=== PATIENT | female | born 1975 | race Caucasian/White ===

== ENCOUNTER → 2016-09-29 | Outpatient (CLI) | payer BC | LOC: M SMT 10:06 | PROVIDERS: ATTEND Advanced Practice Midwife | DX: A60.04 Herpesviral vulvovaginitis (principal) ==

== ENCOUNTER → 2017-05-25 | Outpatient (REF) | payer BC | LOC: M LAB REF 13:32 | PROVIDERS: ATTEND Advanced Practice Midwife | DX: Z11.3 Encounter for screening for infections with a predominantly sexual mode of transmission (principal) ==

== ENCOUNTER → 2019-09-30 | Outpatient (CLI) | payer BC ==
--- NOTE | 2019-09-30 15:36 | REP ---
Clinical: Abnormal menstrual cycles. Technique: Transabdominal pelvic ultrasound followed by transvaginal examination for better evaluation of the endometrium and adnexa with color Doppler evaluation of the ovaries. Findings: Bladder is collapsed. Heterogeneous retroverted uterus measures 11.2 x 5.8 x 7.5 cm. Endometrial complex measures 10.0 mm thickness. No discrete uterine or endometrial abnormality noted. The bilateral ovaries are normal in appearance and vascularity without torsion. Right ovary measures 4.0 x 1.7 x 2.6 cm (RI 0.54) and includes 2.1 cm simple cyst. Left ovary measures 3.6 x 1.6 x 2.7 cm (RI 0.58). No pelvic fluid or adnexal mass lesion. Impression: 1. Relatively normal retroverted uterus. 2. 2.1 cm right ovarian cyst likely physiologic.
== END ==
LOC: M WHC 13:24
PROVIDERS: ATTEND Advanced Practice Midwife
DX: N83.201 Unspecified ovarian cyst, right side (principal); N85.5 Inversion of uterus; N92.0 Excessive and frequent menstruation with regular cycle

== ENCOUNTER → 2019-10-15 | Outpatient (REF) | payer BC | LOC: M SFHCWAGY 17:13 | PROVIDERS: ATTEND Advanced Practice Midwife | DX: N93.9 Abnormal uterine and vaginal bleeding, unspecified (principal) ==

== ENCOUNTER → 2020-01-21 | Outpatient (REF) | payer BC ==
[2020-01-21 21:35] LABS: CHLAMYDIA DNA AMPLIFICATION NEGATIVE (NEGATIVE); GC DNA AMPLIFICATION NEGATIVE (NEGATIVE)
== END ==
LOC: M SFHCWAGY 17:59
PROVIDERS: ATTEND Advanced Practice Midwife
DX: Z97.5 Presence of (intrauterine) contraceptive device (principal)

== ENCOUNTER → 2020-11-03 | Outpatient (REF) | payer BC | LOC: M PLALAB 10:00 | PROVIDERS: ATTEND Advanced Practice Midwife | DX: E04.9 Nontoxic goiter, unspecified (principal) ==

== ENCOUNTER → 2021-06-13 | Outpatient (REF) | payer BC | LOC: M LAB REF 15:26 | PROVIDERS: ATTEND Family Medicine | DX: R19.4 Change in bowel habit (principal) ==

== ENCOUNTER → 2021-11-09 | Outpatient (REF) | payer BC | LOC: M PLALAB 08:30 | PROVIDERS: ATTEND Advanced Practice Midwife | DX: R87.610 Atypical squamous cells of undetermined significance on cytologic smear of cervix (ASC-US) (principal); Z12.4 Encounter for screening for malignant neoplasm of cervix | CPT/HCPCS: 87624; G0123 ==

== ENCOUNTER → 2021-11-09 | Outpatient (CLI) | payer BC | LOC: M PLALAB 10:16 | PROVIDERS: ATTEND Advanced Practice Midwife | DX: R63.5 Abnormal weight gain (principal) ==

== ENCOUNTER → 2021-12-13 | Outpatient (CLI) | payer BC ==
[~2021-12-13] MED LIST: EMGA120I SC; METF750T36 PO; MULT-40 PO; NORE1TAB7 PO; ONDA4TAB6 PO; PEPC1TAB5 PO; QC F0.52 PO; SPIR50TA4 PO; SUMA50TA2 PO
== END ==
LOC: M LABSMTC 10:37
PROVIDERS: ATTEND Anesthesiology
DX: Z01.818 Encounter for other preprocedural examination (principal); Z11.52 Encounter for screening for COVID-19

== ENCOUNTER 2021-12-17 08:43 | Day surgery (SDC) | payer BC ==
[~2021-12-17] VITALS: Ht 167.6 cm; Wt 73.0 kg
[~2021-12-17 08:43] MED LIST changes: +NS 1,000 ML IV ONE
[2021-12-17] MEDS ORDERED: propofoL 200 MG/20 ML VIAL As Ordered ONE (10:07)
[2021-12-17] MEDS ORDERED: LIDOCAINE 2% 100MG/5ML SDV (FOR ANES.) As Ordered ONE (10:07)
[2021-12-17 10:35] VITALS: BP 99/58
== END 2021-12-17 10:49 | disposition home or self-care (01) ==
LOC: M OPP 08:43
PROVIDERS: ATTEND Internal Medicine Gastroenterology
DX: Z12.11 Encounter for screening for malignant neoplasm of colon (principal); Z80.0 Family history of malignant neoplasm of digestive organs; K64.0 First degree hemorrhoids; Z79.3 Long term (current) use of hormonal contraceptives; Z79.84 Long term (current) use of oral hypoglycemic drugs; Z79.899 Other long term (current) drug therapy

== ENCOUNTER → 2022-03-08 | Outpatient (REF) | payer BC ==
[~2022-03-08] MED LIST changes: -NS 1,000 ML IV ONE
[2022-03-09 12:52] LABS: BACTERIA, URINE AUTO 1+ (NEGATIVE); RBC, URINE AUTO 0 /HPF (0-3); SQUAMOUS EPITHELIAL CELL UR AU 1 /HPF (0-6); WBC, URINE AUTO 1 /HPF (0-3)
== END ==
LOC: M LAB REF 12:28
PROVIDERS: ATTEND Registered Nurse
DX: R31.9 Hematuria, unspecified (principal)

== ENCOUNTER → 2023-01-31 | Outpatient (REF) | payer BC | LOC: M SFHCWAGY 08:23 | PROVIDERS: ATTEND Advanced Practice Midwife | DX: Z12.4 Encounter for screening for malignant neoplasm of cervix (principal) | CPT/HCPCS: 87624; G0123 ==

== ENCOUNTER → 2023-02-03 | Outpatient (CLI) | payer BC ==
[2023-02-03 10:02] LABS: BASO % 0.7 % (0.0-1.0); EOS # 0.3 10^3/uL (0.0-0.5); HEMATOCRIT 37.7 % (36.0-47.0); HEMOGLOBIN 12.9 g/dl (12.0-15.5); LYMPH # 1.6 10^3/uL (1.5-5.0); LYMPH % 30.1 % (24.0-44.0); MEAN CORPUSCULAR HEMOGLOBIN 32.1 pg (27.0-33.0); MEAN CORPUSCULAR HGB CONC 34.2 g/dl (32.0-36.5); MEAN CORPUSCULAR VOLUME 93.8 fl (80.0-96.0); MONO # 0.5 10^3/uL (0.0-0.8); MONO % 9.9 % (2.0-8.0); NEUTROPHILS # 2.8 10^3/uL (1.5-8.5); NEUTROPHILS % 53.1 % (36.0-66.0); PLATELET COUNT, AUTOMATED 335 10^3/uL (150-450); RED BLOOD COUNT 4.02 10^6/uL (4.00-5.40); WHITE BLOOD COUNT 5.4 10^3/uL (4.0-10.0)
[2023-02-03 10:25] LABS: ALKALINE PHOSPHATASE 50 U/L (46-116); ALT/SGPT 14 U/L (7.0-40); AST/SGOT 13 U/L (<34); BILIRUBIN,TOTAL 0.3 MG/DL (0.3-1.2); BLOOD UREA NITROGEN < 5 MG/DL (9-23); CALCIUM LEVEL 8.9 MG/DL (8.5-10.1); CARBON DIOXIDE LEVEL 27 MMOL/L (20-31); CHLORIDE LEVEL 106 MMOL/L (98-107); CHOLESTEROL LEVEL 150 MG/DL (<200); CREATININE FOR GFR 0.75 MG/DL (0.55-1.30); GLOMERULAR FILTRATION RATE > 60.0 (>58); GLUCOSE, FASTING 77 MG/DL (60-100); HDL CHOLESTEROL 39.4 MG/DL (>40); LDL CHOLESTEROL 92.8 MG/DL (<100); NON-HDL-C 110.6 MG/DL; POTASSIUM SERUM 3.7 MMOL/L (3.5-5.1); SODIUM LEVEL 136 MMOL/L (136-145); TOTAL PROTEIN 6.3 G/DL (5.7-8.2); TRIGLYCERIDES LEVEL 89 MG/DL (<150)
== END ==
LOC: M WUC 08:06
PROVIDERS: ATTEND Registered Nurse
DX: Z00.00 Encounter for general adult medical examination without abnormal findings (principal); Z13.220 Encounter for screening for lipoid disorders

== ENCOUNTER → 2023-09-14 | Outpatient (REF) | payer BC | LOC: M LAB REF 09:55 | PROVIDERS: ATTEND Registered Nurse | DX: R19.7 Diarrhea, unspecified (principal) ==

== ENCOUNTER → 2023-10-01 | Outpatient (REF) | payer BC | LOC: M LAB REF 14:44 | PROVIDERS: ATTEND Internal Medicine Gastroenterology | DX: R19.7 Diarrhea, unspecified (principal) ==

== ENCOUNTER → 2024-03-12 | Outpatient (REF) | payer BC ==
[~2024-03-12] MED LIST changes: +ONDA-282 PO; -ONDA4TAB6 PO
[2024-03-14 14:47] LABS: HPV APTIMA Not Detected (Not Detected)
== END ==
LOC: M SFHCWAGY 17:42
PROVIDERS: ATTEND Advanced Practice Midwife
DX: Z12.4 Encounter for screening for malignant neoplasm of cervix (principal)